=== PATIENT | male | born 1990 | race Caucasian/White ===

== ENCOUNTER → 2017-01-20 | Outpatient (CLI) | payer OTHER ==
[~2017-01-20] MED LIST: CIPRO 250MG TA250 MG PO; NO HOME MEDICATIONS; PREVACID 15MG15 M1 PO; PROMETHAZINE12.5 M5 PO; VICODIN 5/5001 UDTAB PO
== END ==
LOC: MHCPAIN 12:13
DX: G89.29 Other chronic pain (principal); M47.817 Spondylosis without myelopathy or radiculopathy, lumbosacral region
CPT/HCPCS: G0463

== ENCOUNTER → 2019-06-07 | Outpatient (CLI) | payer OTHER | LOC: COL.PUL 13:00 | DX: R06.02 Shortness of breath (principal) | CPT/HCPCS: J7674 ==

== ENCOUNTER 2022-01-13 11:11 | Day surgery (SDC) | payer OTHER ==
[~2022-01-13] VITALS: Ht 177.8 cm; Wt 111.1 kg
[~2022-01-13 11:11] MED LIST changes: +00186-0372-20 IH; +AMOXICILLIN 8751 TAB PO; +MOTRIN 600600 MG/TAB PO; +NORCO 325 MG-51 TAB PO; +PROZAC40 MG PO; +RT ADVAIR 128 DISKUS IH
[2022-01-13 12:11] VITALS: BP 135/77; PULSE 70; TEMP 98.1
[2022-01-13] MEDS ORDERED: NORCO 325 MG-51 TAB PO (14:59)
[2022-01-13] MEDS ORDERED: MOTRIN 600600 MG/TAB PO (14:59)
[2022-01-13 15:30] VITALS: BP 146/81; PULSE 68; TEMP 97.7
[2022-01-13 15:45] VITALS: BP 147/82; PULSE 57
[2022-01-13 16:00] VITALS: BP 142/81; PULSE 67
--- NOTE | 2022-01-13 16:34 | NUR ---
1530: Patient arrived back into bay 8 from PACU. Patient is alert and oriented. Vital signs stable on room air. Report received from MOSHE Kate. Patient requesting water and blueberry muffin. Patient stating pain is tolerable, states he is worried about pain during drive home. Educated patient on eating while taking pain medications and that he can be given PRN norco with food. Denies nausea. Call light left within reach. 1545: Patient vitally stable. Tolerating food and drink well. Denies pain or nausea at this time. 1600: Patient up to restroom with stand by assist able to void successfully. PRN norco given per OCT. 1615: Patient meets discharge criteria. IV removed without complications. Went through discharge instructions with patient and family member. Patient got dressed. Escorted to patient entrance via wheelchair. Patient got into personal vehicle unassisted and left in the care of his .
[2022-01-13 16:59] VITALS: BP 141/87; PULSE 75; TEMP 97.7
== END 2022-01-13 16:20 | disposition home or self-care (01) ==
LOC: SDCO 11:11
DX: K80.10 Calculus of gallbladder with chronic cholecystitis without obstruction (principal); G47.33 Obstructive sleep apnea (adult) (pediatric); Z99.89 Dependence on other enabling machines and devices; Z87.891 Personal history of nicotine dependence
CPT/HCPCS: J0330; J3010; J7120

== ENCOUNTER 2022-02-26 08:48 | Day surgery (SDC) | payer OTHER ==
[2022-02-26] VITALS (8 sets, daily range): BP systolic 128–146; BP diastolic 77–97; PULSE 55–77; TEMP 98–98.2
[~2022-02-26] VITALS: Ht 177.8 cm; Wt 113.3 kg
--- NOTE | 2022-02-26 11:10 | NUR ---
PATIENT ARRIVES TO ROOM 3 VIA CART. ASSIST X 3 TO CHAIR. VITAL SIGNS WNL. AT BEDSIDE. PATIENT IS COMPLAINING OF NAUSEA AND CHEST PAIN IN THE AREA THE STENT WAS PULLED. VERBAL ORDER FROM DOCTOR FOR 8MG ZOFRAN ODT X 1 DOSE. DOCTOR WOULD LIKE PATIENT TO STAY FOR OBSERVATION POST PROCEDURE X 2 HOURS. WILL CONTINUE TO MONITOR.
--- NOTE | 2022-02-26 11:25 | NUR ---
PATIENT GIVEN ZOFRAN AT 1130, WILL SEE IF THAT HELPS CONTROL NAUSEA. BLOOD PRESSURE IS SLIGHTLY ELEVATED D/T PATIENT HAVING PAIN WHERE STENT WAS PULLED. AT BEDSIDE. WAITING FOR DOCTOR TO SPEAK WITH PATIENT. WILL CONTINUE TO MONITOR.
--- NOTE | 2022-02-26 11:40 | NUR ---
PAIN IS RESOLVING BUT PATIENT IS STILL VERY NAUSEATED. VERBAL ORDER GIVEN BY DOCTOR FOR ZOFRAN 4 MG IV. PATIENT PULLED OUT IV IN OR SO NEW IV STARTED IN RIGHT ARM AT 1155. LR INFUSING. VITAL SIGNS WNL. WILL CONTINUE TO MONITOR.
--- NOTE | 2022-02-26 11:55 | NUR ---
PT STATES FEELING BETTER. RECEIVED ORDER FOR 4 MG ZOFRAN IV. PT DENIES NEEDING MEDICATION. EDUCATED PT ON THE USE FOR THE MEDICATION. PT AGREED TO RECEIVE ZOFRAN 4 MG IV. MEDICATION WAS GIVEN AT THAT TIME.
--- NOTE | 2022-02-26 12:10 | NUR ---
PT TOLERATING SODA. CONTINUES TO STATE PAIN HAS DECREASED AND NAUSEA HAS DECREASED.
--- NOTE | 2022-02-26 12:30 | NUR ---
PT TOLERATING MUFFIN. DENIES ANY ADDITIONAL NEEDS AT THIS TIME.
--- NOTE | 2022-02-26 12:45 | NUR ---
PT STATES PAIN IS 1-2/10.
--- NOTE | 2022-02-26 13:00 | NUR ---
IV DC'D. PT TOLERATED WELL.
--- NOTE | 2022-02-26 13:10 | NUR ---
DISCHARGE EDUCATION COMPLETED WITH PT AND HIS . VERBALIZED UNDERSTANDING OF HOME AND FOLLOW UP CARE. ALL QUESTIONS ANSWERED. DISCHARGE PAPERWORK GIVEN TO PT.
--- NOTE | 2022-02-26 13:25 | NUR ---
PT OFF UNIT PER WHEELCHAIR. PT DISCHARGED TO HOME WITH PER PERSONAL VEHICLE.
== END 2022-02-26 13:25 | disposition home or self-care (01) ==
LOC: SDCO 08:48
DX: K80.50 Calculus of bile duct without cholangitis or cholecystitis without obstruction (principal); K83.8 Other specified diseases of biliary tract; K31.9 Disease of stomach and duodenum, unspecified; K85.90 Acute pancreatitis without necrosis or infection, unspecified; K83.1 Obstruction of bile duct; F17.290 Nicotine dependence, other tobacco product, uncomplicated
CPT/HCPCS: C1769; J2405; J2550; J2704; J3010; J7120; Q9967